=== PATIENT | male | born 1935 | race Caucasian/White ===

== ENCOUNTER 2016-06-17 05:38 | Inpatient (IN) | payer MEDICARE, BC ==
[2016-06-13 17:00] LABS: BASOPHILS % 0.5 % (0.0-2.0); EOSINOPHILS # 0.2 10^3/ul (0.0-0.5); EOSINOPHILS % 3.6 % (0.0-7.0); HEMATOCRIT 41.7 % (42.0-52.0); HEMOGLOBIN 14.3 g/dl (14.0-18.0); LYMPHOCYTES # 1.7 10^3/ul (0.8-2.9); LYMPHOCYTES % 29.4 % (15.0-51.0); MEAN CORPUSCULAR HEMOGLOBIN 29.7 pg (29.0-33.0); MEAN CORPUSCULAR HGB CONC 34.3 g/dl (32.0-37.0); MEAN CORPUSCULAR VOLUME 86.6 fl (82.0-101.0); MEAN PLATELET VOLUME 9.3 fl (7.4-10.4); MONOCYTE # 0.4 10^3/ul (0.3-0.9); NEUTROPHIL # 3.5 10^3/ul (1.6-7.5); NEUTROPHILS % 59.5 % (39.0-77.0); PLATELET COUNT 250 10^3/UL (140-440); RED BLOOD COUNT 4.81 10^6/ul (4.70-6.10); RED CELL DISTRIBUTION WIDTH 13.3 % (11.5-14.5)
[2016-06-13 17:11] LABS: INR 1.01; PROTIME 13.3 Sec (12.2-14.2)
[2016-06-13 17:12] LABS: PARTIAL THROMBOPLASTIN TIME 29.7 Sec (25.0-35.0)
[2016-06-13 17:24] LABS: CONDITION 1
[2016-06-13 17:27] LABS: ADD UMIC NO; URINE BILIRUBIN (Dip) NEGATIVE (NEGATIVE); URINE BLOOD (Dip) NEGATIVE (NEGATIVE); URINE COLOR YELLOW (YELLOW); URINE GLUCOSE (Dip) NEGATIVE (NEGATIVE); URINE KETONES (Dip) TRACE (NEGATIVE); URINE LEUKOCYTE ESTERASE (Dip) NEGATIVE (NEGATIVE); URINE NITRITE (Dip) NEGATIVE (NEGATIVE); URINE TOTAL PROTEIN (Dip) NEGATIVE (NEGATIVE); URINE UROBILINOGEN (Dip) 0.2 E.U./dL (0.1-1.0)
[2016-06-14 12:08] VITALS: BMI 26.4
[2016-06-14 20:54] LABS: RHEUM FACTOR TITER 1:32; RHEUMATOID FACTOR POSITIVE (NEGATIVE)
[2016-06-15 08:47] LABS: PROTEIN, TOTAL 6.5 g/dL (6.1-8.1)
[2016-06-15 13:34] LABS: HLA B-27 NEGATIVE (NEGATIVE)
[2016-06-15 15:05] LABS: ANA SCREEN NEGATIVE (NEGATIVE)
[2016-06-15 17:12] LABS: ALBUMIN 3.9 g/dL (3.8-4.8)
[2016-06-17] VITALS (24 sets, daily range): BP systolic 96–131; BP diastolic 48–78; PULSE 74–100; RESP 9–28; Ht 175.3 cm; Wt 83.1 kg
[~2016-06-17] VITALS: Ht 175.3 cm; Wt 83.1 kg
[2016-06-17] MEDS ORDERED: CEFAZOLIN 2 GM/50 ML (PMX) 50 ML IVPB SCH (06:30)
[2016-06-17] MEDS ORDERED: LACTATED RINGER'S 1,000 ML IV* SCH ×2 (06:30)
[2016-06-17] MEDS ORDERED: BUPIVACAINE 0.25% (MPF) 10 ML 10 ML VIAL ONE (06:36)
[2016-06-17] MEDS ORDERED: THROMBIN 5000 UNIT VIAL ONE (06:36)
[2016-06-17] MEDS ORDERED: GELATIN SIZE 100 SPONGE ONE (06:36)
[2016-06-17] MEDS ORDERED: POLYMYXIN/BACITRACIN 1L IRRIG ONE (06:36)
[2016-06-17] MEDS ORDERED: PROPOFOL 20 ML ONE ×2 (06:56→08:09)
[2016-06-17] MEDS ORDERED: MIDAZOLAM 1 MG/ML 2 ML INJ ONE (06:56)
[2016-06-17] MEDS ORDERED: ROCURONIUM 50 MG INJ ONE (06:56)
[2016-06-17] MEDS ORDERED: LIDOCAINE 2% (SDV) 5 ML INJ ONE (06:56)
[2016-06-17] MEDS ORDERED: SUCCINYLCHOLINE CHLORIDE 100 MG/5 ML SYG IV ONE (06:56)
[2016-06-17] MEDS ORDERED: FENTAnyl 50 MCG/ML VIAL ONE ×2 (06:56→07:49)
--- NOTE | 2016-06-17 06:56 | HPN ---
Date/Time of Note Date/Time of Note DATE: 06/17/16 TIME: 06:55 Interval H&P Admission Note Pt. seen H&P reviewed: No system changes ERIKA MERCHANT MD Jun 17, 2016 06:56
[2016-06-17] MEDS ORDERED: OCULAR LUBRICANT 3.5 GM OPH OINT ONE (06:57)
[2016-06-17] MEDS ORDERED: LOSA25TA5 PO (07:28)
[2016-06-17] MEDS ORDERED: AMLO-147 PO (07:28)
[2016-06-17] MEDS ORDERED: EPHEDrine SULFATE 50 MG/5 ML SYG ONE (07:47)
[2016-06-17] MEDS ORDERED: LABETALOL HCL 20MG INJ ONE (07:51)
[2016-06-17] MEDS ORDERED: HYDROmorphONE 2 MG/ML SYG ONE (07:52)
--- NOTE | 2016-06-17 08:05 | RADRPT ---
PROCEDURE: XR Lumbar Spine one view. CLINICAL INDICATION: Low back pain. Intraoperative. TECHNIQUE: Prone portable cross-table lateral. COMPARISON: No prior studies are available for comparison. FINDINGS: For the purposes of this report, the last apparent true disc level is considered to be L5-S1. Based on this, the posterior needle markers are present at the L2 vertebral body level and L5 spinous pro cess level. IMPRESSION: 1. Intraoperative imaging as described above. RPTAT: QQ .Clark Barcenas MD, Date Time Electronically viewed and signed by .Clark Barcenas MD, on 06/17/2016 08:05 .R/
--- NOTE | 2016-06-17 08:06 | RADRPT ---
PROCEDURE: XR Lumbar Spine one view. CLINICAL INDICATION: Low back pain. Intraoperative. TECHNIQUE: Prone portable cross-table lateral. COMPARISON: Prior study done earlier the same day. FINDINGS: For the purposes of this report, the last apparent true disc level is considered to be L5-S1. Based on this, the posterior surgical instruments are present at the L2, L3, L4, and L5 spinous process l evel. IMPRESSION: 1. Intraoperative imaging as described above. Call report: A call report of the findings was made to Dr. Gregory on 06/17/2016 at 0800 hours. RPTAT: QQ .Clark Barcenas MD, MD Date Time Electronically viewed and signed by .Clark Barcenas MD, MD on 06/17/2016 08:06 .R/
[2016-06-17] MEDS ORDERED: ONDANSETRON 4 MG INJ ONE (08:07)
[2016-06-17] MEDS ORDERED: DEXAMETHASONE 4 MG/ML 1 ML INJ ONE (08:07)
[2016-06-17] MEDS ORDERED: METOCLOPRAMIDE 10 MG INJ ONE (08:07)
[2016-06-17] MEDS ORDERED: PROCHLORPERAZINE 10 MG INJ IV PRN (08:30)
[2016-06-17] MEDS ORDERED: HYDROmorphONE (0.2 MG/ML) 10ML SYG IV PRN (08:30)
[2016-06-17] MEDS ORDERED: MEPERIDINE 25 MG INJ IV PRN (08:30)
[2016-06-17] MEDS ORDERED: ONDANSETRON 4 MG INJ IV PRN ×2 (08:30→13:00)
[2016-06-17] MEDS ORDERED: OXYCODONE/ACETAMINOPHEN (5/325) TAB PO PRN ×2 (08:30)
[2016-06-17] MEDS ORDERED: DIPHENHYDRAMINE 50 MG INJ IV PRN (08:30)
[2016-06-17] MEDS ORDERED: hydrALAzine 20 MG INJ IV PRN (08:30)
[2016-06-17] MEDS ORDERED: METOCLOPRAMIDE 10 MG INJ IV PRN (08:30)
[2016-06-17] MEDS ORDERED: LABETALOL HCL 20MG INJ IV PRN (08:30)
[2016-06-17] MEDS ORDERED: VASOPRESSIN 20 UNITS INJ ONE (08:35)
[2016-06-17] MEDS ORDERED: GLYCOPYRROLATE 1 MG INJ ONE (10:22)
[2016-06-17] MEDS ORDERED: NEOSTIGMINE 3 MG/3 ML SYRINGE ONE (10:22)
[2016-06-17] MEDS ORDERED: CEFAZOLIN 1 GM INJ ONE (10:37)
[2016-06-17] MEDS: FENTAnyl 50 MCG/ML VIAL IV PRN ×4 (11:17→11:43)
[2016-06-17] MEDS ORDERED: AL HYDROX/MG HYDROX/SIMETH 30 ML CUP PO PRN (11:30)
[2016-06-17] MEDS ORDERED: NACL 0.9% 3 ML SYG IV SCH (11:30)
[2016-06-17] MEDS ORDERED: CEPASTAT LOZENGE MT PRN (11:30)
[2016-06-17] MEDS ORDERED: BETHANECHOL 25 MG TAB PO PRN (11:30)
[2016-06-17] MEDS ORDERED: ZOLPIDEM 5 MG TAB PO PRN (11:30)
[2016-06-17] MEDS ORDERED: HYDROmorphONE 0.2 MG/ML PCA IV SCH (11:30)
[2016-06-17] MEDS ORDERED: ACETAMINOPHEN 325 MG TAB PO PRN (11:30)
[2016-06-17] MEDS ORDERED: NALOXONE (0.4 MG/ML) INJ IV PRN (11:30)
--- NOTE | 2016-06-17 11:32 | OPPN ---
Date/Time of Note Date/Time of Note DATE: 06/17/16 TIME: 11:26 Operative/Procedure Note Pre-Operative Diagnosis Lumbar spinal stenosis from L2-L5 Post-Operative Diagnosis Same Procedure Central decompressive laminectomy at L2 Central decompressive laminectomy at L3 Central decompressive laminectomy at L4 Central decompressive laminectomy at L5 Medial facetectomy and foraminotomy at L2-3 L3-4 L4-5 and L5-S1 bilaterally Cosmetic wound closure (15 cm) Lateral localizing lumbar radiographs (2) Intraoperative nerve monitoring (3 hours) Surgeon: ERIKA MERCHANT MD Data Capture Clerk: TATIANA DAVIDSON Anesthesiologist: AGUSTIN TURNER MD Findings At surgery multilevel severe spinal stenosis was confirmed Blood Usage/Administration None Estimated blood loss: other Drains 2 medium Hemovac drains employed Specimens Spinous processes of L2-L3-L4 and L5 Complications: None Anesthesia type: general ERIKA MERCHANT MD Jun 17, 2016 11:31
[2016-06-17] MEDS: HYDROmorphONE (0.2 MG/ML) 10ML SYG IV PRN ×5 (11:39→12:04)
[2016-06-17] MEDS ORDERED: DIAZEPAM 5 MG/ML SYG IM PRN (13:00)
[2016-06-17] MEDS ORDERED: TRIMETHOBENZAMIDE 100 MG/ML VIAL IM PRN (13:00)
[2016-06-17] MEDS ORDERED: PROCHLORPERAZINE 10 MG TAB PO PRN (13:00)
[2016-06-17] MEDS ORDERED: HYDROCODONE/APAP (5/325) TAB PO PRN (13:00)
[2016-06-17] MEDS ORDERED: DIPHENHYDRAMINE 50 MG CAP PO PRN (13:00)
[2016-06-17] MEDS ORDERED: DIAZEPAM 5 MG TAB PO PRN (13:00)
[2016-06-17] MEDS: CEFAZOLIN 1 GM/50 ML (PMX) 50 ML IVPB SCH ×3 (14:03→23:48)
--- NOTE | 2016-06-17 14:15 | OPR ---
DATE OF OPERATION: 06/17/2016 PREOPERATIVE DIAGNOSIS: Multilevel spinal stenosis (L2, L3, L4 and L5). POSTOPERATIVE DIAGNOSIS: Multilevel spinal stenosis (L2, L3, L4 and L5). OPERATION PERFORMED: 1. Central decompressive laminectomy at L2. 2. Central decompressive laminectomy at L3. 3. Central decompressive laminectomy at L4. 4. Central decompressive laminectomy at L5. 5. Medial facetectomy and foraminotomy, L2-3, L3-4, L4-5, L5-S1 bilaterally. 6. Cosmetic wound closure (15 cm). 7. Lateral localized lumbar radiographs (2). 8. Intraoperative nerve monitoring (3 hours). SURGEON: Mitchell Gregory MD DIRECTOR OF STUDENT FINANCIAL AID: Phoebe Mondragon PA-C ANESTHESIA: General endotracheal. ANESTHESIOLOGIST: Yael Riley MD ESTIMATED BLOOD LOSS: 400 mL-none replaced. DRAINS: Two medium Hemovac drains employed. COMPLICATIONS: None. PERTINENT HISTORY AND PHYSICAL: This is a 80-year-old male with severe back and bilateral leg pain, right greater than left, which have been unrelieved by conservative management. He has undergone a number of diagnostic studies including an MRI of the lumbar spine which demonstrated multilevel spi nal stenosis at L2, L3, L4, and L5. Treatment options were discussed with the patient, who elected to proceed with surgery. OPERATIVE FINDINGS AT SURGERY: Multilevel severe spinal stenosis from L2-L5 was confirmed. [facility] revealed a decrease in the right L2 potential of 40%, the righ t L3 potential of 40%, the right L4 potential of 30%, the right L5 potential of 40%. These all retu rned to normal at the completion of surgery. OPERATIVE PROCEDURE: With the patient in supine position after satisfactory induction of general en dotracheal anesthesia by Dr. Riley, the patient was turned to the prone kneeling position on the [facility] frame. All pressure points were carefully padded. Back was prepped and draped in usual steril e fashion. Athrombic pumps were applied to the legs below the knees to prevent venous stasis during and after procedure. An indwelling Hernandez catheter was also placed preoperatively to facilitate diana dder drainage during and after the procedure. Two spinal needles were placed next to what was felt to be the L2 and L5 spinous processes, lateral roentgenogram was taken which confirmed anatomic loca lization. A 15 cm incision then carried out midline from L2 to the sacrum through skin and subcutan eous tissue to the deep fascia after skin was infiltrated with 0.25% Marcaine without epinephrine fo r postoperative analgesia. Superficial retractors were placed and hemostasis secured with electroca utery. Throughout procedure, copious amounts of antibacterial irrigating solution was used to perio dically irrigate the wound. The fascia was incised in midline with a hot knife and a bilateral subp eriosteal dissection carried out from L2-L5. Deep retractors were placed and deep hemostasis secure d with electrocautery. A second intraoperative radiograph was taken with Jarrett clamps placed in wh at was felt to be the spinous process of L3, L4, and L5. This was confirmed with second x-ray. A c entral decompressive laminectomy at L2, L3, L4, and L5 was then carried out using a Itzel right-an gle bone rongeur, Leksell rongeur, Kerrison punches and curettes. Ligamentum flavum was incised wit h sharp dissection. The operating microscope was then moved into place. A medial facetectomy and f oraminotomy was accomplished at L2-3, L3-4, L4-5, and L5-S1 bilaterally using small hand osteotome, mallet, Kerrison punches and curettes. Epidural hemostasis was secured with bipolar electrocautery on low setting. The anesthesiologist then asked to perform a Valsalva maneuver at 40 mmHg and no sp inal fluid leakage was noted. The wound was then closed in layers over 2 medium Hemovac drains, one below the fascia and one above the fascia, using #1 Stratafix sutures in deep paralumbar musculatur e and deep fascia of the back, 2-0 Stratafix sutures on the subcutaneous tissues, 4-0 Vicryl subcuti cular cosmetic closing suture on the skin. Dermabond was applied to the skin as well. Sterile comp ressive dressings were applied. Patient having tolerated procedure well, was then turned to the sup ine position onto his bed and extubated by Dr. Riley. He was transported to recovery room in satisfa ctory condition. At the conclusion of the procedure, sponge, instrument, and needle counts were all correct. NEED FOR EMERGENCY RESPONSE TECHNICIAN: During this spinal surgical procedure, my payroll administrative assistant was used to retrac t and protect the spinal nerves and dural sac. My payroll administrative assistant also employed the suction catheters to e vacuate blood from the surgical field to improve visualization of the neural structures. The assista nt was medically necessary to facilitate the completion of the surgery in a safe and expeditious man ner. [facility] regulations, as well as hospital bylaws, preclude the use of non-licensed [facility] care personnel such as operating room technicians, to perform these functions. Throughout the procedure, neural monitoring was carried out by [employer] including EMG, SSEP and MEP monitoring of the L2, L3, L4, L5 and S1 nerve roots bilaterally along wi th spinal cord potentials. These were interpreted by neurologist employed by [employer]. Dictated By: MITCHELL GREGORY MD TM/NTS Conf#: [id number] DID#: [id number] CC: SHEFALI HUGO MD;*End*
[2016-06-17] MEDS: DEXTROSE 5%-0.45% NACL 1,000 ML IV SCH ×2 (17:14→23:47)
--- NOTE | 2016-06-17 18:39 | CONS ---
DATE OF ADMISSION: 06/17/2016 DATE OF CONSULTATION: TYPE OF CONSULTATION: Medical. Thank you, Dr. Gregory, for asking me to participate in medical management of this patient. REASON FOR CONSULTATION: To manage the patient's hypertension, hyperlipidemia. HISTORY OF PRESENT ILLNESS: This 80-year-old man is now in the postanesthesia recovery room after u ndergoing a lumbar spine surgery. The patient had a history of severe back and bilateral leg pain, right greater than left. The patient had failed conservative medical management and decided to unde rgo surgery. The patient was found to have multilevel spinal stenosis at L2, L3, L4, and L5. The p atient underwent a multilevel central decompressive laminectomy at L2, L3, L4, and L5 by Dr. Fabiola newman. The patient is awake and alert and says that his pain is decreasing. His pain management seems to be under control. PAST MEDICAL HISTORY: The patient has the following past medical history of hypertension, hyperlipi demia, adenocarcinoma of the prostate, osteoarthritis, rotator cuff tear of the right shoulder, char ract of the left eye. PAST SURGICAL HISTORY: Remarkable for radical prostatectomy in 2005, status post bilateral knee rep lacements in 2012 and 2013, rotator cuff surgery in 2008, cataract surgery, left eye. There is a note on the chart dictated by Dr. Gordy Dumont, which details the patient's past med ical history and clears him for this surgery. ALLERGIES: HE DOES HAVE ALLERGY TO TETRACYCLINE. SOCIAL HISTORY: He is . He does not smoke cigarettes. He is a social alcohol drinker. He exercises moderately. FAMILY HISTORY: Father at age 76 of cancer. Mother at age 93 of unknown causes. He has a brother who is alive and well at age 64. CURRENT MEDICATIONS: Include the followin. Coenzyme Q10. 2. Crestor 5 mg 5 times a week. 3. Celebrex 200 mg daily p.r.n. pain. 4. Aspirin 81 mg 4 to 5 times a week, which was discontinued preoperatively. 5. Ambien 10 mg p.r.n. sleep. 6. Multivitamins. 7. Amlodipine 10 mg a day. 8. Losartan 25 mg a day. PHYSICAL EXAMINATION: GENERAL: At this time, reveals a well-developed man in no apparent distress. VITAL SIGNS: Temperature 98.1, pulse is 76, respirations 19, blood pressure 118/65, O2 saturation 9 8% on 2 liter nasal cannula. HEENT: Head normocephalic. EYES: Extraocular muscles intact. NOSE AND MOUTH: Normal. NECK: Supple. No neck vein distention. LUNGS: Clear to auscultation. HEART: Regular rhythm. No murmurs, gallops, or rubs. ABDOMEN: Soft, nontender. EXTREMITIES: No peripheral edema. IMPRESSION: This patient is doing well postoperatively today. He is awake and alert. His pain is controlled with current pain medication. His vital signs are stable. His blood pressure is normal and under control. The patient did take his amlodipine and Losartan this morning before surgery. I will manage the patient's hypertension and hyperlipidemia. PLAN: 1. Resume routine medications. 2. Check labs in the morning. 3. Postop lumbar spine surgery protocol. 4. I will follow the patient along with you. Dictated By: SHEFALI HUGO MD ND/DERECK Conf#: [id number] DID#: [id number] CC: ERIKA GREGORY MD;*EndCC*
[2016-06-17] MEDS: RANITIDINE 150 MG TAB PO SCH (20:46)
[2016-06-18] VITALS (10 sets, daily range): BP systolic 105–132; BP diastolic 59–85; PULSE 65–99; RESP 9–24
[2016-06-18 04:58] LABS: BASOPHILS % 0.1 % (0.0-2.0); HEMOGLOBIN 10.9 g/dl (14.0-18.0); LYMPHOCYTES % 9.2 % (15.0-51.0); MEAN CORPUSCULAR HEMOGLOBIN 30.1 pg (29.0-33.0); MEAN CORPUSCULAR HGB CONC 34.1 g/dl (32.0-37.0); MEAN CORPUSCULAR VOLUME 88.1 fl (82.0-101.0); MONOCYTE # 0.6 10^3/ul (0.3-0.9); MONOCYTES % 5.1 % (0.0-11.0); NEUTROPHIL # 9.3 10^3/ul (1.6-7.5); NEUTROPHILS % 85.6 % (39.0-77.0); PLATELET COUNT 208 10^3/UL (140-440); RED BLOOD COUNT 3.63 10^6/ul (4.70-6.10); RED CELL DISTRIBUTION WIDTH 13.1 % (11.5-14.5); UNCORRECTED WBC 10.9 10^3/ul (4.8-10.8); WHITE BLOOD COUNT 10.9 10^3/ul (4.8-10.8)
[2016-06-18 05:06] LABS: POTASSIUM 4.3 mmol/L (3.5-5.1)
[2016-06-18 05:08] LABS: ALBUMIN/GLOBULIN RATIO 1.3; CREATININE 0.93 mg/dl (0.61-1.24); TOTAL PROTEIN 5.3 g/dl (6.1-8.1)
[2016-06-18 05:09] LABS: CALCIUM 8.2 mg/dl (8.4-10.2)
[2016-06-18 05:53] LABS: CONDITION 1
[2016-06-18] MEDS: CEFAZOLIN 1 GM/50 ML (PMX) 50 ML IVPB SCH (06:21)
--- NOTE | 2016-06-18 07:06 | PN ---
Date/Time of Note Date/Time of Note DATE: 06/18/16 TIME: 07:02 Assessment/Plan Lines/Catheters IV Catheter Type (from Nrsg): Peripheral IV Hernandez in Place (from Nrsg): Yes Subjective 24 Hr Interval Summary Pt seen in ICU with Dr. Gregory, pt sent here to recover post-op. He did well after his surgery. VS are stable. Hgb 10.9 today. Drain with 50cc overnight, this will continue to be monitored. He has not been up ambulating yet. He is tolerating liquids. OK to transfer to if ok with Dr. Persaud Exam/Review of Systems Vital Signs Vitals Vital Signs Date Time Temp Pulse Resp B/P Pulse Ox O2 Delivery O2 Flow Rate FiO2 06/18/16 06:00 65 12 114/64 100 Room Air 06/18/16 04:00 98.4 06/17/16 15:00 2.0 Intake and Output 06/17/16 06/17/16 06/18/16 15:00 23:00 07:00 Intake Total 1280 ml 1320 ml 1100 ml Output Total 1010 ml 730 ml 825 ml Balance 270 ml 590 ml 275 ml Results Result Diagram: 06/18/16 0425 06/18/16 0425 TATIANA DAVIDSON Jun 18, 2016 07:06
[2016-06-18] MEDS ORDERED: SOD CHLORIDE 0.45% 1,000 ML IV SCH (08:00)
[2016-06-18] MEDS ORDERED: BETHANECHOL 25 MG TAB PO PRN (08:00)
--- NOTE | 2016-06-18 08:05 | CONS ---
Date/Time of Note Date/Time of Note DATE: 06/18/16 TIME: 08:03 Assessment/Plan Assessment/Plan Chief Complaint/Hosp Course 1. he is 1 day post op a lumbar spine surgery and doing well . He can transfer out of ICU to [address] 2. continue current medication and PT . Problems: Consultation Date/Type/Reason Admit Date/Time Jun 17, 2016 at 05:38 Initial Consult Date 24 HR Interval Summary Free Text/Dictation he is in the ICU , 1 day post op a lumbar spine surgery . Constitutional: improved, no complaints Exam/Review of Systems Vital Signs Vitals Vital Signs Date Time Temp Pulse Resp B/P Pulse Ox O2 Delivery O2 Flow Rate FiO2 06/18/16 07:00 67 12 115/69 97 Room Air 06/18/16 04:00 98.4 06/17/16 15:00 2.0 Intake and Output 06/17/16 06/17/16 06/18/16 15:00 23:00 07:00 Intake Total 1280 ml 1320 ml 1250 ml Output Total 1010 ml 730 ml 825 ml Balance 270 ml 590 ml 425 ml Exam Constitutional: alert, oriented, well developed Psych: nl mood/affect, no complaints Respiratory: clear to auscultation, normal air movement Cardiovascular: nl pulses, regular rate and rhythm Gastrointestinal: soft Musculoskeletal: nl extremities to inspection Results Result Diagram: 06/18/1642406/18/165 Results 24 hrs Laboratory Tests Test 06/18/16 04:25 Alanine Aminotransferase (ALT/SGPT) 28 Albumin 3.0 L Albumin/Globulin Ratio 1.30 Alkaline Phosphatase 58 Anion Gap 13 Aspartate Amino Transf (AST/SGOT) 25 Basophils # 0.0 Basophils % 0.1 Blood Urea Nitrogen 16 Calcium Level 8.2 L Carbon Dioxide Level 27 Chloride Level 103 Creatinine 0.93 Direct Bilirubin 0.00 Eosinophils # 0.0 Eosinophils % 0.0 Globulin 2.30 Glucose Level 165 Hematocrit 32.0 #L Hemoglobin 10.9 #L Indirect Bilirubin 0.0 Lymphocytes # 1.0 Lymphocytes % 9.2 L Mean Corpuscular Hemoglobin 30.1 Mean Corpuscular Hemoglobin Concent 34.1 Mean Corpuscular Volume 88.1 Mean Platelet Volume 9.0 Monocytes # 0.6 Monocytes % 5.1 Neutrophils # 9.3 H Neutrophils % 85.6 H Nucleated Red Blood Cells # 0.0 Nucleated Red Blood Cells % 0.0 Platelet Count 208 Potassium Level 4.3 Red Blood Count 3.63 #L Red Cell Distribution Width 13.1 Sodium Level 139 Total Bilirubin 0.0 L Total Protein 5.3 L White Blood Count 10.9 #H Medications Medications Current Medications Acetaminophen/ Hydrocodone Bitart ([place] (5/325)) 1 tab Q4H PRN PO PAIN LEVEL 1 -5; Start 06/17/16 at 13:00 Acetaminophen/ Hydrocodone Bitart ([place] (5/325)) 2 tab Q4H PRN PO PAIN LEVEL 6 -10; Start 06/17/16 at 13:00 Zolpidem Tartrate (Ambien) 5 mg HS PRN PO INSOMNIA; Start 06/17/16 at 11:30 Prochlorperazine (Compazine) 10 mg Q4H PRN PO NAUSEA AND/OR VOMITING; Start at 13:00 Trimethobenzamide HCl (Tigan) 200 mg Q4H PRN IM NAUSEA AND/OR VOMITING; Start 06/17/16 at 13:00 Ondansetron HCl (Zofran Inj) 4 mg Q6H PRN IV NAUSEA AND/OR VOMITING; Start at 13:00 Al Hydrox/Mg Hydrox/Simethicone (Mag-Al Plus) 15 ml Q4H PRN PO CONSTIPATION; Start 06/17/16 at 11:30 Docusate Sodium (Colace) 100 mg BID PO ; Start 06/18/16 at 09:00 Acetaminophen (Tylenol Tab) 650 mg Q4H PRN PO TEMP GREATER THAN 101F OR CHACKO; Start 06/17/16 at 11:30 Ascorbic Acid (Vitamin C) 1,000 mg BID PO ; Start 06/18/16 at 09:00 Ferrous Sulfate (Ferrous Sulfate (Ec)) 325 mg TID PO ; Start 06/18/16 at 09:00 Ranitidine HCl (Zantac) 150 mg BID PO Last administered on 06/17/16t 20:46; Admin Dose 150 MG; Start 06/17/16 at 21:00 Diazepam (Valium) 5 mg Q4H PRN PO MUSCLE SPASMS; Start 06/17/16 at 13:00 Diazepam (Valium) 5 mg Q4H PRN IM MUSCLE SPASMS; Start 06/17/16 at 13:00 Phenol (Cepastat Lozenge) 1 lozenge PRN PRN MT SORE THROAT; Start 06/17/16 at 11:30 Bethanechol Chloride (Urecholine) 25 mg PRN PRN PO UNABLE TO VOID; Start at 11:30 Diphenhydramine HCl (Benadryl) 50 mg Q6H PRN PO PRURITUS; Start 06/17/16 at 13: 00 Hydromorphone HCl (Dilaudid OVEN [employer]DER) Q4PCA IV Last administered on 06/17/16t 11:51 ; Admin Dose 6 MG; Start 06/17/16 at 11:30 Naloxone HCl (Narcan) 0.2 mg Q2M PRN IV RR 8 BREATHS/MIN OR LESS; Start at 11:30 Amlodipine Besylate (Norvasc) 10 mg DAILY PO ; Start 06/18/16 at 09:00 Losartan Potassium (Cozaar) 25 mg DAILY PO ; Start 06/18/16 at 09:00 Bethanechol Chloride 25 mg 25 mg PRN PRN PO UNABLE TO VOID; Start 06/18/16 at 08:00 Sodium Chloride (1/2 NS) 1,000 ml @ 100 mls/hr Q10H IV ; Start 06/18/16 at 08: 00; Status UNSHEFALI LAO MD Jun 18, 2016 08:05
[2016-06-18] MEDS: DOCUSATE SODIUM 100 MG CAP PO SCH ×2 (08:56→20:30)
[2016-06-18] MEDS: FERROUS SULFATE (EC) 325 MG TAB PO SCH ×3 (08:56→20:30)
[2016-06-18] MEDS: RANITIDINE 150 MG TAB PO SCH ×2 (08:56→20:30)
[2016-06-18] MEDS: AMLODIPINE 10 MG TAB PO SCH (08:57)
[2016-06-18] MEDS: ASCORBIC ACID 500 MG TAB PO SCH ×2 (08:58→20:30)
[2016-06-18] MEDS: LOSARTAN 25 MG TAB PO SCH (09:04)
[2016-06-18] MEDS: HYDROCODONE/APAP (5/325) TAB PO PRN ×2 (11:07→21:11)
--- NOTE | 2016-06-19 07:54 | PN ---
Date/Time of Note Date/Time of Note DATE: 06/19/16 TIME: 07:52 Assessment/Plan Lines/Catheters IV Catheter Type (from Nrsg): Saline Lock Hernandez in Place (from Nrsg): Yes Subjective 24 Hr Interval Summary Patient is doing well postop day #2 from lumbar decompression. He has been up ambulating. He denies any leg pain and neurovascular structures are intact. His incisional pain is 4/10. He has been voiding, he has had a bowel movement, he is tolerating diet. His drain output is 80 cc overnight and this will continued to be monitored. He may be discharged later today if drain is removed , if he is cleared by physical therapy, and if he is cleared by medicine Exam/Review of Systems Vital Signs Vitals Vital Signs Date Time Temp Pulse Resp B/P Pulse Ox O2 Delivery O2 Flow Rate FiO2 06/18/16 19:54 98.4 94 18 132/61 96 06/18/16 08:00 Room Air 06/17/16 15:00 2.0 Intake and Output 06/18/16 06/18/16 06/19/16 15:00 23:00 07:00 Intake Total 800 ml 700 ml Output Total 710 ml 80 ml Balance 90 ml 620 ml Results Result Diagram: 06/18/16 0425 06/18/16 0425 TATIANA DAVIDSON Jun 19, 2016 07:54
[2016-06-19 07:58] VITALS: BP 131/89; RESP 20
[2016-06-19] MEDS: DOCUSATE SODIUM 100 MG CAP PO SCH (08:50)
[2016-06-19] MEDS: FERROUS SULFATE (EC) 325 MG TAB PO SCH ×2 (08:50→13:40)
[2016-06-19] MEDS: RANITIDINE 150 MG TAB PO SCH (08:50)
[2016-06-19] MEDS: AMLODIPINE 10 MG TAB PO SCH (08:50)
[2016-06-19] MEDS: LOSARTAN 25 MG TAB PO SCH (08:51)
[2016-06-19] MEDS: ASCORBIC ACID 500 MG TAB PO SCH (08:51)
--- NOTE | 2016-06-19 09:20 | CONS ---
Date/Time of Note Date/Time of Note DATE: 06/19/16 TIME: 09:18 Assessment/Plan Assessment/Plan Chief Complaint/Hosp Course 1. he is 2 days post op a lumbar spine surgery and doing well . He can be discharged to home after drain is removed and cleared by PT . 2. continue current medication and PT . Problems: Consultation Date/Type/Reason Admit Date/Time Jun 17, 2016 at 05:38 Type of Consultation: medicine Reason for Consultation HTN Referring Provider: ERIKA MERCHANT MD 24 HR Interval Summary Free Text/Dictation He is sitting up in a chair . He still has some incisional back pain . Exam/Review of Systems Vital Signs Vitals Vital Signs Date Time Temp Pulse Resp B/P Pulse Ox O2 Delivery O2 Flow Rate FiO2 06/19/16 07:58 98.1 88 20 131/89 98 06/18/16 08:00 Room Air 06/17/16 15:00 2.0 Intake and Output 06/18/16 06/18/16 06/19/16 15:00 23:00 07:00 Intake Total 800 ml 700 ml Output Total 710 ml 80 ml Balance 90 ml 620 ml Exam Constitutional: alert, oriented, well developed Psych: nl mood/affect, no complaints Respiratory: clear to auscultation, normal air movement Cardiovascular: nl pulses, regular rate and rhythm Gastrointestinal: nl liver, spleen, non-tender, soft Musculoskeletal: nl extremities to inspection Results Result Diagram: 06/18/165 06/18/16 0425 Medications Medications Current Medications Acetaminophen/ Hydrocodone Bitart ([place] (5/325)) 1 tab Q4H PRN PO PAIN LEVEL 1 -5 Last administered on 06/18/16 21:11; Admin Dose 1 TAB; Start 06/17/16 at 13: 00 Acetaminophen/ Hydrocodone Bitart ([place] (5/325)) 2 tab Q4H PRN PO PAIN LEVEL 6 -10 Last administered on 06/19/16 08:51; Admin Dose 2 TAB; Start 06/17/16 at 13 :00 Zolpidem Tartrate (Ambien) 5 mg HS PRN PO INSOMNIA; Start 06/17/16 at 11:30 Prochlorperazine (Compazine) 10 mg Q4H PRN PO NAUSEA AND/OR VOMITING; Start at 13:00 Trimethobenzamide HCl (Tigan) 200 mg Q4H PRN IM NAUSEA AND/OR VOMITING; Start 06/17/16 at 13:00 Ondansetron HCl (Zofran Inj) 4 mg Q6H PRN IV NAUSEA AND/OR VOMITING; Start at 13:00 Al Hydrox/Mg Hydrox/Simethicone (Mag-Al Plus) 15 ml Q4H PRN PO CONSTIPATION; Start 06/17/16 at 11:30 Docusate Sodium (Colace) 100 mg BID PO Last administered on 06/19/16 08:50; Admin Dose 100 MG; Start 06/18/16 at 09:00 Acetaminophen (Tylenol Tab) 650 mg Q4H PRN PO TEMP GREATER THAN 101F OR CHACKO; Start 06/17/16 at 11:30 Ascorbic Acid (Vitamin C) 1,000 mg BID PO Last administered on 06/19/16 08:51 ; Admin Dose 1,000 MG; Start 06/18/16 at 09:00 Ferrous Sulfate (Ferrous Sulfate (Ec)) 325 mg TID PO Last administered on 08:50; Admin Dose 325 MG; Start 06/18/16 at 09:00 Ranitidine HCl (Zantac) 150 mg BID PO Last administered on 06/19/16 08:50; Admin Dose 150 MG; Start 06/17/16 at 21:00 Diazepam (Valium) 5 mg Q4H PRN PO MUSCLE SPASMS; Start 06/17/16 at 13:00 Diazepam (Valium) 5 mg Q4H PRN IM MUSCLE SPASMS; Start 06/17/16 at 13:00 Phenol (Cepastat Lozenge) 1 lozenge PRN PRN MT SORE THROAT; Start 06/17/16 at 11:30 Diphenhydramine HCl (Benadryl) 50 mg Q6H PRN PO PRURITUS; Start 06/17/16 at 13: 00 Hydromorphone HCl (Dilaudid [employer]GRAM [employer]OR) Q4PCA IV Last administered on 06/17/16 11:51 ; Admin Dose 6 MG; Start 06/17/16 at 11:30 Naloxone HCl (Narcan) 0.2 mg Q2M PRN IV RR 8 BREATHS/MIN OR LESS; Start at 11:30 Amlodipine Besylate (Norvasc) 10 mg DAILY PO Last administered on 06/19/16 08: 50; Admin Dose 10 MG; Start 06/18/16 at 09:00 Losartan Potassium (Cozaar) 25 mg DAILY PO Last administered on 06/19/16 08:51 ; Admin Dose 25 MG; Start 06/18/16 at 09:00 Bethanechol Chloride (Urecholine) 25 mg PRN PRN PO UNABLE TO VOID; Start at 08:00 SHEFALI HUGO MD Jun 19, 2016 09:20
--- NOTE | 2016-06-19 13:32 | PDOCDIS ---
Discharge Instructions CONDITION Patient Condition: Good HOME CARE INSTRUCTIONS: Diet Instructions: RegularSpecial Diet: Regular ACTIVITY: Activity Restrictions: Slowly Increase Activity Rest between Activity Avoid heavy lifting Do not Drive Do not operate Machinery Do not operate Power Tool Avoid Heavy Housework Bathing Restrictions: Shower FOLLOW UP/APPOINTMENTS Appointments SHEFALI Morales MD Jun 19, 2016 13:32
== END 2016-06-19 14:50 | disposition home or self-care (01) | DRG 517 ==
LOC: REC 05:38 → ICU 18:35 → MS1 06-18 08:56
PROVIDERS: ADMIT Orthopaedic Surgery; ATTEND Orthopaedic Surgery
PROC: 4A1104G Monitoring of Peripheral Nervous Electrical Activity, Intraoperative, Open Approach (ICD-10-PCS; 2016-06-17)
PROC: 01NB0ZZ Release Lumbar Nerve, Open Approach (ICD-10-PCS; principal; 2016-06-17 07:00)
DX: M48.06 Spinal stenosis, lumbar region (principal); I10 Essential (primary) hypertension; M54.17 Radiculopathy, lumbosacral region; M43.17 Spondylolisthesis, lumbosacral region; M54.18 Radiculopathy, sacral and sacrococcygeal region; M54.31 Sciatica, right side; S39.012D Strain of muscle, fascia and tendon of lower back, subsequent encounter; X58.XXXD Exposure to other specified factors, subsequent encounter; Z85.46 Personal history of malignant neoplasm of prostate; E78.5 Hyperlipidemia, unspecified; Z90.79 Acquired absence of other genital organ(s); Z96.653 Presence of artificial knee joint, bilateral
CPT/HCPCS: 72020; 80053; 80061; 81003; 84155; 84165; 85025; 85610; 85651; 85730; 86038; 86255; 86430; 86592; 86812; 86850; 86900; 86901; 86920; 87086; 88304; 88311; 97116; 97162; 97530; J0330; J0690; J1100; J1170; J1200; J2175; J2250; J2405; J2710; J2765; J3010; J7042